=== PATIENT | male | born 1975 | race Hispanic/Latino ===

== ENCOUNTER 2017-11-12 07:42 | Emergency (ER) | payer BC ==
[2017-11-12 08:01] LABS: APPEARANCE,URINE Clear (CLEAR); BILIRUBIN,URINE Negative (NEGATIVE); COLOR,URINE Yellow (YELLOW); GLUCOSE, URINE (UA) Negative (NEGATIVE); KETONES,URINE Negative (NEGATIVE); LEUKOCYTE ESTERASE ,URINE Negative (NEGATIVE); NITRATE,URINE Negative (NEGATIVE); OCCULT BLOOD,URINE Negative (NEGATIVE); PROTEIN,URINE Negative (NEGATIVE); UROBILINOGEN,URINE 0.2 mg/dL (0.2-1.0)
[2017-11-12 08:15] LABS: EOSINOPHILS % (AUTO) 3.3 % (0.0-8.0); HEMATOCRIT 42.4 % (42-54); LYMPHOCYTES % (AUTO) 32.8 % (21.0-51.0); MEAN CORPUSCULAR HEMOGLOBIN 30.9 pg (27.0-33.0); MEAN CORPUSCULAR HGB CONC 33.7 g/dL (32.0-36.0); MEAN CORPUSCULAR VOLUME 91.5 fL (79-99); MONOCYTES % (AUTO) 6.6 % (3.0-13.0); NEUTROPHILS % (AUTO) 56.3 % (40.0-77.0); PLATELET COUNT (AUTO) 236 K/uL (130-400); RED BLOOD CELL COUNT(AUTO) 4.64 MIL/uL (4.50-6.20); RED CELL DISTRIBUTION WIDTH 13.6 % (11.0-15.5); WHITE BLOOD COUNT (AUTO) 8.6 K/uL (4.8-10.8)
[2017-11-12] MEDS ORDERED: KETOROLAC TROMETHAMINE 30MG/ML ONE (08:17)
[2017-11-12] MEDS ORDERED: SODIUM CHLORIDE 0.9% 1000ML 1,000 ML IV ONE (08:17)
[2017-11-12] MEDS ORDERED: ONDANSETRON HCL 4 MG/2 ML VIAL ONE (08:17)
[2017-11-12] MEDS ORDERED: METOCLOPRAMIDE 10 MG/2 ML VIAL ONE (08:17)
[2017-11-12 08:23] LABS: CREATININE 1.3 mg/dL (0.5-1.5)
[2017-11-12 08:29] LABS: ALBUMIN 3.7 g/dL (3.5-5.0); BILIRUBIN,TOTAL 0.4 mg/dL (0.2-1.0); TOTAL PROTEIN, SERUM 7.2 g/dL (6.0-8.3)
== END 2017-11-12 12:05 | disposition home or self-care (01) ==
LOC: EDH 07:42
DX: N20.1 Calculus of ureter (principal); N23 Unspecified renal colic; Z90.49 Acquired absence of other specified parts of digestive tract; Z98.890 Other specified postprocedural states
CPT/HCPCS: 36415; 74176; 80053; 81003; 85025; 96374; 96375; 99285; J1885; J2405; J2765; J7030

== ENCOUNTER 2021-07-17 15:52 | Emergency (ER) | payer BC ==
[~2021-07-17] VITALS: Ht 167.6 cm; Wt 99.8 kg
[2021-07-17 16:08] LABS: APPEARANCE,URINE Clear (CLEAR); BILIRUBIN,URINE Negative (NEGATIVE); COLOR,URINE Yellow (YELLOW); GLUCOSE, URINE (UA) Negative (NEGATIVE); KETONES,URINE Negative (NEGATIVE); LEUKOCYTE ESTERASE ,URINE Negative (NEGATIVE); NITRATE,URINE Negative (NEGATIVE); OCCULT BLOOD,URINE Large (NEGATIVE); PROTEIN,URINE Trace mg/dL (NEGATIVE)
[2021-07-17 16:20] LABS: BASOPHILS % (AUTO) 0.8 % (0.0-5.0); EOSINOPHILS % (AUTO) 4.5 % (0.0-8.0); HEMATOCRIT 43.7 % (42-54); LYMPHOCYTES % (AUTO) 35.3 % (21.0-51.0); MEAN CORPUSCULAR HEMOGLOBIN 29.3 pg (27.0-33.0); MEAN CORPUSCULAR HGB CONC 31.6 g/dL (32.0-36.0); MEAN CORPUSCULAR VOLUME 92.8 fL (79-99); MONOCYTES % (AUTO) 5.7 % (3.0-13.0); NEUTROPHILS % (AUTO) 53.1 % (40.0-77.0); PLATELET COUNT (AUTO) 247 K/uL (130-400); RED BLOOD CELL COUNT(AUTO) 4.71 MIL/uL (4.50-6.20); RED CELL DISTRIBUTION WIDTH 12.6 % (11.0-15.5); WHITE BLOOD COUNT (AUTO) 10.8 K/uL (4.8-10.8)
[2021-07-17] MEDS ORDERED: ONDANSETRON 4MG INJ ONE (16:37)
[2021-07-17 16:38] LABS: ALBUMIN 3.8 g/dL (3.5-5.0); BILIRUBIN,TOTAL 0.6 mg/dL (0.2-1.0); CREATININE 1.4 mg/dL (0.5-1.5); POTASSIUM 4.3 mmol/L (3.5-5.1); TOTAL PROTEIN, SERUM 7.3 g/dL (6.0-8.3)
[2021-07-17] MEDS ORDERED: MORPHINE 4 MG SYG ONE (16:38)
[2021-07-17 16:51] LABS: BACTERIA,URINE Rare /HPF (None Seen); WBC,URINE 0-1 /HPF (0-1)
[2021-07-17 16:52] LABS: SQUAMOUS EPITHELIAL CELL,UR Rare /HPF (0-2)
[2021-07-17] MEDS ORDERED: ONDANSETRON 4MG INJ IVP ONE (17:00)
[2021-07-17] MEDS ORDERED: TAMSULOSIN HCL 0.4 MG CAP.ER.24H PO SCH (17:00)
[2021-07-17] MEDS ORDERED: KETOROLAC 15MG/ML VIAL (15MG/ML) IV ONE (17:00)
[2021-07-17] MEDS ORDERED: 0.9%NACL 1000ML 1,000 ML IV ONE (17:00)
[2021-07-17] MEDS ORDERED: MORPHINE 4 MG SYG IVP ONE (17:00)
[2021-07-17] MEDS ORDERED: IBUP-2070 PO (17:16)
[2021-07-17] MEDS ORDERED: ACET-2079 PO (17:16)
[2021-07-17 19:15] VITALS: BP 134/76
[2021-07-18] MEDS ORDERED: TAMS-1 PO (06:31)
== END 2021-07-17 19:32 | disposition home or self-care (01) ==
LOC: EDH 15:52
DX: N23 Unspecified renal colic (principal); Z79.1 Long term (current) use of non-steroidal anti-inflammatories (NSAID)
CPT/HCPCS: 36415; 74176; 80053; 81001; 85025; 96361; 96374; 96375; 99284; J1885; J2270; J2405; J7030

== ENCOUNTER 2021-07-18 05:06 | Emergency (ER) | payer BC ==
[~2021-07-18] VITALS: Ht 167.6 cm; Wt 102.1 kg
[~2021-07-18 05:06] MED LIST: ACET-2079 PO; IBUP-2070 PO
[2021-07-18] MEDS: HYDROMORPHONE 1 MG INJ IVP ONE ×2 (05:47→06:24)
[2021-07-18] MEDS: KETOROLAC 30MG VIAL (30MG/ML) IVP ONE (05:47)
[2021-07-18] MEDS: 0.9%NACL 1000ML 1,000 ML IV ONE (05:47)
[2021-07-18] MEDS: ONDANSETRON 4MG INJ IVP ONE (05:47)
[2021-07-18] MEDS ORDERED: TAMS-1 PO (06:31)
[2021-07-18 06:39] VITALS: BP 128/72
== END 2021-07-18 06:50 | disposition home or self-care (01) ==
LOC: EDH 05:06
DX: N23 Unspecified renal colic (principal); K59.00 Constipation, unspecified; J45.909 Unspecified asthma, uncomplicated; Z79.1 Long term (current) use of non-steroidal anti-inflammatories (NSAID); Z87.442 Personal history of urinary calculi; Z90.49 Acquired absence of other specified parts of digestive tract
CPT/HCPCS: 96361; 96374; 96375; 96376; 99284; J1170 ×2; J1885; J2405; J7030